=== PATIENT | male | born 1965 | race Caucasian/White ===

== ENCOUNTER → 2024-02-03 09:45 | Outpatient (CLI) | payer OTHER, SELFPAY ==
[2024-02-03 19:24] LABS: Add Manual Diff / Slide Review NO; Basophils Absolute Auto 0 /uL (0-100); Basophils Percent Auto 0.7 % (0-2); Eosinophils Absolute Auto 200 /uL (0-450); Eosinophils Percent Auto 3.5 % (2-4); Hematocrit 40.7 % (41-53); Lymphocytes Absolute Auto 1300 /uL (1100-4500); Mean Corpuscular HGB Conc 34.5 % (30-36); Mean Corpuscular Hemoglobin 32.6 PG (26-34); Mean Corpuscular Volume 94.5 fL (80-100); Monocytes Absolute Auto 400 /uL (0-900); Monocytes Percent Auto 6.7 % (3-14); Neutrophils Absolute Auto 4000 /uL (1500-7000); Neutrophils Percent Auto 67.1 % (50-75); Platelet Count 222 X10^3/uL (150-400); Red Blood Cell Count 4.31 X10^6/uL (4.5-5.9); White Blood Cell Count 5.9 X10^3/uL (4.5-11.0)
[2024-02-03 19:31] LABS: Alanine Aminotransferase 27 IU/L (<50); Albumin 4.3 g/dL (3.5-5.0); Albumin Globulin Ratio 1.6 (1.0-2.8); Alkaline Phosphatase 61 U/L (38-126); Aspartate Aminotransferase 27 IU/L (17-59); BUN Creatinine Ratio 21.4 (6-22); Bilirubin Total 0.6 mg/dL (0.2-1.3); Blood Urea Nitrogen 18 mg/dL (9-20); Calcium 9.1 mg/dL (8.4-10.2); Carbon Dioxide 31 mmol/L (22-32); Chloride 107 mmol/L (98-107); Cholesterol 229 mg/dL (140-199); Estimated Glomerular Filt Rate > 60 mL/min (>60); Globulin 2.7 g/dL (1.7-4.1); Glucose 108 mg/dL (70-100); HEMOLYSIS < 15 (0-50); Sodium 140 mmol/L (137-145); Triglycerides 45 mg/dL (35-150)
[2024-02-03 19:43] LABS: HDL Cholesterol 120 mg/dL (40-60); LDL Cholesterol Calculated 100 mg/dL (<100)
[2024-02-03 19:59] LABS: TSH w/ Reflex to FT4 0.95 uIU/mL (0.47-4.68)
[2024-02-03 20:00] LABS: Prostate Specific Antigen Scrn 1.73 ng/mL (0.1-4.0)
== END ==
PROVIDERS: PCP Family Medicine; Visit Provider Family Medicine
DX: Z12.5 Encounter for screening for malignant neoplasm of prostate (principal); I10 Essential (primary) hypertension; K40.90 Unilateral inguinal hernia, without obstruction or gangrene, not specified as recurrent
CPT/HCPCS: 80053; 80061; 84443; 85025; G0103

== ENCOUNTER → 2024-02-18 12:14 | Outpatient (CLI) | payer OTHER, SELFPAY ==
--- NOTE | 2024-02-18 | DI.US.S_ITS ---
PROCEDURE: US ABDOMEN LIMITED INDICATIONS: Unilateral inguinal hernia, without obstruction or TECHNIQUE: Real-time scanning was performed of the left groin, with image documentation. COMPARISON: None. FINDINGS: Targeted ultrasound of the left inguinal canal. There is a left inguinal hernia containing fat. The hernia neck measures approximately 0.9 cm. The hernia is reducible. IMPRESSION: Fat containing left inguinal hernia. Dictated by: Maurizio Toure M.D. on 02/18/2024 at 17:55 Approved by: Maurizio Toure M.D. on 02/18/2024 at 17:56
== END ==
PROVIDERS: PCP Family Medicine; Referring Provider Family Medicine; Visit Provider Family Medicine
DX: K40.90 Unilateral inguinal hernia, without obstruction or gangrene, not specified as recurrent (principal); I10 Essential (primary) hypertension
CPT/HCPCS: 76705

== ENCOUNTER 2024-06-10 06:57 | Day surgery (SDC) | payer OTHER, SELFPAY ==
[2024-06-04 15:19] VITALS: BMI 32.8
--- NOTE | 2024-06-09 07:45 | P.HP_ITS ---
History of Present Illness History of Present Illness Date Patient Seen: 06/10/24 Time Patient Seen: 08:37 Chief complaint: Left Laparoscopic Inguinal Hernia Repair Narrative: 59M with symptomatic left inguinal hernia here for elective lap repair. Worsening left groin pain and radiation into scrotum. No other interval changes in health. [facility] Medical History Vision disorder Hearing decreased Foot pain (~2002) MRSA (methicillin resistant Staphylococcus aureus) (~2014) Eczema BMI 32.0-32.9,adult Alcohol use Left groin hernia History of compression fracture of spine FHx: coronary artery disease History of diverticulitis HTN (hypertension) Family History Father History of heart disease Social History marital status: unmarried,single household members: significant other lives independently: Yes occupational status: employed Smoking Status: Never smoker alcohol intake: current additional social history: no tob 3 drinks/day edible sometimes FHX: dad - of [place], bypass @ 50 yo --- at 76 yo. 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 01/03/24 06/10/24 Rx take every day even if normal. #30 tabs Allergies Allergy/AdvReac Type Severity Reaction Status Date / Time codeine AdvReac Severe Nausea/vomi Verified 06/10/24 07:44 ting Exam Narrative Exam Narrative: Gen-Adult man alert and oriented Abdomen -Left inguinal hernia site marked with initials. Assessment & Plan Assessment and plan (1) Left groin hernia: Status: Acute Assessment & Plan narrative: 59M with symptomatic left inguinal hernia here for elective lap repair. Overview of the operation and its benefits alternatives and risks hemorrhage, infection, chronic pain, reoccurence reviewed. He provides his consent to proceed. Time-Based Coding :: [TOTAL MINUTES] spent with patient and on the chart (including review of chart, obtaining history, exam, reviewing outside data, placing orders, documenting exam and treatment plan, and counseling patient) on [DATE].
[2024-06-10 07:45] VITALS: BMI 31.6
[2024-06-10 07:49] VITALS: BP 172/101; PULSE 68; RESP 16; TEMP 36.2; O2SAT 97
[2024-06-10] MEDS: LACTATED RINGERS 1,000 ML 21 ML IV (07:54)
--- NOTE | 2024-06-10 08:07 | SUR.OPER ---
Supine on padded OR bed, head on pillow, arms padded and tucked at sides, legs uncrossed, safety belt at thigh, tape over blanket over lower legs .
[2024-06-10] MEDS: CEFAZOLIN 2 GM/100 ML PREMIX 100 ML IV (08:51)
[2024-06-10] MEDS: BUPIVACAINE 0.25% (PF) VIAL 30 ML INJ (09:07)
--- NOTE | 2024-06-10 09:50 | PM.OP.1 ---
Operative Date/Time/Diagnoses Date of procedure: 06/10/24 Time of procedure: 09:50 Pre-op diagnosis: Left inguinal hernia Post-op diagnosis: same Procedure & Clinicians Procedure: Laparoscopic repair of left inguinal hernia Same procedure as scheduled: Yes Indications: Symptomatic reducible left inguinal hernia Surgeon: Eliezer Castillo Barrel Raiser Helper: Adama Cadet Anesthesia Type: General Operative Notes Findings: Large indirect hernia Estimated Blood Loss (mL): 10 Procedure in detail: The patient was brought to the operating room and placed supine on the table. Bilateral sequential compression devices were applied. General anesthesia was induced and they were intubated with an endotracheal tube. A hernandes cath was placed in sterile fashion. They received 900g clindaymycin prior to skin incision. They were prepped and draped in sterile fashion. A time out was performed to ensure the correct patient, procedure and necessary equipment within the operating room. The skin was infiltrated with 0.25% bupivicaine. A 1 cm supra umbilical midline incision was made. The fascia was sharply incised and the abdomen entered traumatically. A 10mm balloon port was placed and pneumoperitoneum was established at 15mm Hg. Inspection of the abdomen demonstrated no evidence of injury upon entry. Two 5 mm ports were then placed under direct visualization in the right and left lower quadrant lateral to the rectus muscle. A left indirect hernia was observed. There were adhesions between the sigmoid colon and the left pelvic side wall which were carefully dissected. Starting on the left side the peritoneum 4 cm superior to the deep inguinal ring between the medial umbilical ligament and the anterior superior iliac spine was incised. The medial preperitoneal dissection was carried out into the space of Retzius bluntly, the bladder was swept inferiorly, the pubis and Kali's ligament were identified. Next attention was turned towards the lateral aspect of the peritoneal flap. The preperitoneal fat with the testicular vessels was carefully dissected off the inferior peritoneal flap. The cord was carefully inspected there was a large indirect hernia and associated cord lipoma which was skeltonized off the cord preserving the testicular vessels and the vas deferns. There was no direct hernia. A large Bard 3D Max mesh was then placed into the abdomen and positioned such that the myopectineal orifice was completely covered with good overlap on all sides. The peritoneal flap was then repositioned back to its original position and a running V lock suture was used to close the peritoneum such that no bowel could herniate into the preperitoneal space. The area was examined for hemostasis. The 5mm trocars were removed under direct visualization and pneumoperitoneum was deflated through the umbilical trocar, The fascia at the umbilicus was closed with 0-Vicryl in figure of 8 fashion, skin closed with 4-0 Monocyl followed by Dermabond. The sponge and instrument count at the end of the case was correct. Both testicles were entirely within the scrotum at the end of the case. The patient emerged from anesthsia was extubated and transferred to recovery in stable condition. Complications: none Post-operative Condition: stable Disposition: same day surgery
[2024-06-10 10:01] VITALS: BP 166/99; PULSE 73; RESP 12; TEMP 37.1; O2SAT 99
[2024-06-10 10:06] VITALS: BP 170/99; PULSE 73; RESP 16; TEMP 37; O2SAT 99
[2024-06-10 10:11] VITALS: BP 172/101; PULSE 64; RESP 14; TEMP 37; O2SAT 98
[2024-06-10 10:15] VITALS: BP 175/102; PULSE 60; RESP 13; TEMP 37; O2SAT 100
[2024-06-10] MEDS: OXYCODONE IR 5 MG TABLET PO ×2 (10:20→10:43)
[2024-06-10] MEDS: ACETAMINOPHEN 325 MG TABLET 975 MG PO (10:21)
[2024-06-10 10:46] VITALS: BP 172/99; PULSE 50; RESP 12; TEMP 36.4; O2SAT 99
--- NOTE | 2024-06-10 12:54 | SUR.PHASEII ---
1100 Pt dressed and ready for DC. Waiting for ride.
== END 2024-06-10 11:20 | disposition home or self-care (01) ==
PROVIDERS: PCP Family Medicine; Referring Provider Surgery; Visit Provider Surgery
PROC: 0YQ64ZZ Repair Left Inguinal Region, Percutaneous Endoscopic Approach (ICD-10-PCS; CPT 49650; principal; 2024-06-10 08:45)
DX: K40.90 Unilateral inguinal hernia, without obstruction or gangrene, not specified as recurrent (principal); D17.6 Benign lipomatous neoplasm of spermatic cord
CPT/HCPCS: 49650; 82962; J0690; J1100; J2250; J2405; J2704; J3010

== ENCOUNTER → 2024-09-21 08:46 | Outpatient (CLI) | payer OTHER, SELFPAY ==
--- NOTE | 2024-09-21 08:48 | DI.US.S_ITS ---
PROCEDURE: US SCROTUM INDICATIONS: testical pain TECHNIQUE: Real-time scanning was performed of the scrotum and testicles, with image documentation. Color and pulse Doppler interrogation was performed of both testicles. COMPARISON: None. FINDINGS: Right: Testicle is normal in size at 4.8 x 3.6 x 2.5 cm, and homogenous in echotexture. Epididymis is normal in overall size and morphology. No hydrocele or varicoceles. Overlying scrotal skin is normal in thickness. Left: Testicle is normal in size at 4.9 x 3.7 x 2.5 cm, and homogeneous in echotexture. Epididymis is normal in overall size and morphology. Trace hydrocele. No varicocele. Overlying scrotal skin is normal in thickness. Doppler: Color and pulse Doppler demonstrate normal and symmetric arterial flow in both testicles. Fat containing right inguinal hernia is seen. Abdominal wall defect measures up to 0.8 cm in diameter. Status post left inguinal hernia repair. No recurrent hernia is seen. IMPRESSION: 1. No sonographic signs of testicular torsion or epididymitis. 2. Small fat containing right inguinal hernia. 3. Status post left inguinal hernia repair without a recurrent left inguinal hernia. Approved by: José Sorto M.D. on 09/21/2024 at 13:52
== END ==
PROVIDERS: PCP Family Medicine; Referring Provider Surgery; Visit Provider Surgery
DX: N50.812 Left testicular pain (principal); K40.90 Unilateral inguinal hernia, without obstruction or gangrene, not specified as recurrent
CPT/HCPCS: 76870

== ENCOUNTER 2024-09-22 08:19 | Day surgery (SDC) | payer OTHER, SELFPAY ==
--- NOTE | 2024-09-22 | PATH_ITS ---
[facility] Accession Number: [id number] No. of containers..02 Tissue . 01 Material submitted: . PART A: colon - DESCENDING COLON POLYP PART B: cecum - CECAL POLYP . 01 Diagnosis: Part A: DESCENDING COLON POLYP : Tubulovillous adenoma. No high-grade dysplasia or malignancy identified. . Part B: CECAL POLYP: Tubular adenoma. [facility] 09/24/2024 1255 Local . 01 Electronically signed: . Mark Sampson MD, Pathologist NPI- [id number] . 01 Gross description: . A. Received in formalin with two patient identifiers and descending colon polyp, is a single arriola and brown soft tissue fragment measuring 1.8 x 0.9 x 0.9 cm. Inked blue, serially sectioned, and submitted in cassette A1. . B. Received in formalin with two patient identifiers and cecal polyp, is a single arriola soft tissue fragment 0.5 cm in greatest dimension. Submited in cassette B1. ([id number]) /[facility] 09/24/2024 1255 Local . 01 Pathologist provided ICD-10: D12.0, D12.4 . 01 CPT . 635348, 325519 Specimen Comment: A courtesy copy of this report has been sent to [phone] Performed at: [address] [facility] [address], [place], [place] [id number] MD Mark Sampson MD Phone: [phone]
[2024-09-22 09:00] VITALS: BP 104/91; PULSE 84; RESP 16; TEMP 36.3
--- NOTE | 2024-09-22 09:44 | P.HP_ITS ---
History of Present Illness History of Present Illness Date Patient Seen: 09/22/24 Time Patient Seen: 09:44 Chief complaint: Colonoscopy Narrative: 59-year-old male here for screening colonoscopy. Had a colonoscopy in mid 30s for diverticular related disease. No abdominal concerns today. No family history of colon cancer. [facility] Medical History Vision disorder Hearing decreased Foot pain (~2002) MRSA (methicillin resistant Staphylococcus aureus) (~2014) Eczema BMI 32.0-32.9,adult Alcohol use Left groin hernia History of compression fracture of spine FHx: coronary artery disease History of diverticulitis HTN (hypertension) Surgical History Hx of hernia repair Family History Father History of heart disease Social History marital status: unmarried,single household members: significant other lives independently: Yes occupational status: employed Smoking Status: Never smoker alcohol intake: current additional social history: no tob 3 drinks/day edible sometimes FHX: dad - of [place], bypass @ 50 yo --- at 76 yo. 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 09/03/24 09/22/24 Rx take every day even if normal. #90 tabs Allergies Allergy/AdvReac Type Severity Reaction Status Date / Time codeine AdvReac Severe Nausea/vomi Verified 09/22/24 08:59 ting Exam Vital Signs (past 8 hours): - 09/22/24 09:00 Temperature 97.4 F L Pulse Rate 84 Respiratory Rate 16 Blood Pressure 104/91 H Oxygen Delivery Method Room Air Oxygen Delivery Method Room Air Narrative Exam Narrative: General adult man alert oriented no acute distress Chest nonlabored respiration Extremities warm well perfused Assessment & Plan Assessment & Plan narrative: The patient requires colorectal screening and colonoscopy is recommended. Technical details were discussed. Risks, benefits, alternatives explained. Risks including but not limited to myocardial infarction, aspiration, bleeding, pain, missed lesion, incomplete examination, need for further radiographic studies, intestinal injury, and need for major abdominal surgery were discussed. All questions were answered to their satisfaction, and they are in agreement with this plan. Time-Based Coding :: [TOTAL MINUTES] spent with patient and on the chart (including review of chart, obtaining history, exam, reviewing outside data, placing orders, documenting exam and treatment plan, and counseling patient) on [DATE].
[2024-09-22 10:13] VITALS: BP 105/77; PULSE 89; RESP 12; TEMP 37.2; O2SAT 95
--- NOTE | 2024-09-22 10:16 | P.OP.COLON_ITS ---
Operative Date/Time/Diagnoses Date of procedure: 09/22/24 Time of procedure: 10:16 Pre-op diagnosis: Colorectal screening Post-op diagnosis: other (Colonic polyp x2) Procedure & Clinicians Study performed: Colonoscopy and polypectomy Same procedure as scheduled: Yes Indications: Screening Surgeon: Eliezer Castillo Procedure Notes Procedure in detail: The history and physical was performed/updated and the patient is ASA class is 2. The procedure was discussed in detail with the patient. Potential risks complications including infection, bleeding, missed diagnosis, perforation, need for surgery, and were explained. Their questions were answered and informed consent was obtained. Patient was brought to the procedure room and placed standard monitoring equipment. The patient's vital signs were monitored continuously throughout the entire procedure. Prior to starting time-out was performed. The patient was placed in the left lateral recumbent position. Procedural sedation was administered by anesthesia. Examination began with a thorough inspection of the perianal area there was no evidence of fissures, fistulae, external hemorrhoids or cutaneous malignancy. The colonoscopy scope was then placed into the anal canal and was advanced to the cecum, which was identified by the ileocecal valve, the appendiceal orifice and the confluence of the taenia. The scope was then slowly withdrawn examining colon thoroughly in all directions, irrigating it of any residual stool. The scope was retroflexed within the rectum The patient tolerated the procedure well. They will be discharged once criteria are met. The prep was of good/excellent quality. The withdrawl time was10 minutes. FINDINGS * 1 cm pedunculated polyp of descending colon at 60 cm from the verge. Removed with cold snare. Tattoo placed at the base of the lesion. * Mild diverticulosis of distal colon. * Cecum 3 mm polyp removed with Jumbo forceps. Specimen(s): other (Cecal polyp, descending colon polyp) Impression: Colonic polyp x2 Post-procedure Recommendations: High fiber diet Plan for aftercare: Follow up is dependent on pathology findings Disposition: same day surgery
[2024-09-22 10:17] VITALS: BP 119/74; PULSE 95; RESP 16; TEMP 37.1; O2SAT 97
[2024-09-22 10:25] VITALS: BP 118/75; PULSE 76; RESP 17; O2SAT 99
== END 2024-09-22 10:38 | disposition home or self-care (01) ==
PROVIDERS: PCP Family Medicine; Referring Provider Surgery; Visit Provider Surgery
PROC: 0DJD8ZZ Inspection of Lower Intestinal Tract, Via Natural or Artificial Opening Endoscopic (ICD-10-PCS; CPT 45378; principal; 2024-09-22 09:45)
DX: Z12.11 Encounter for screening for malignant neoplasm of colon (principal); K57.30 Diverticulosis of large intestine without perforation or abscess without bleeding; D12.4 Benign neoplasm of descending colon; D12.0 Benign neoplasm of cecum
CPT/HCPCS: 45385; 45380; 45381; J2704

== ENCOUNTER → 2024-10-17 08:13 | Outpatient (CLI) | payer OTHER, SELFPAY ==
--- NOTE | 2024-10-17 08:15 | DI.CT.S_ITS ---
PROCEDURE: CT ABDOMEN PELVIS W CON INDICATIONS: LLQ pain, h/o diverticulitis, recent hernia surgery TECHNIQUE: After the administration of intravenous contrast, axial sections acquired from the lung bases to the pubic symphysis. Coronal and sagittal reformats were performed. For radiation dose reduction, the following was used: automated exposure control, adjustment of mA and/or kV according to patient size. COMPARISON: None. FINDINGS: Image quality: Diagnostic. Peritoneum: No pneumoperitoneum or ascites. Bones: No acute osseous abnormality. Mild focal kyphosis of the thoracolumbar junction secondary to a chronic T12 compression fracture (478) with up to 30% height loss. Lower Chest: No acute abnormality. Liver: Normal in size and contour. Gallbladder: No stones or pericholecystic fluid. Biliary tree: No intrahepatic or extrahepatic biliary ductal dilatation. Pancreas: Within normal limits. Spleen: Normal in size and contour. Kidneys: No hydronephrosis or obstructive urolithiasis. Adrenals: No adrenal nodularity. Bladder: Normal in size and wall thickness. : No acute abnormality. Stomach: Normal in size and contour. Bowel: Normal in diameter without any bowel obstruction. Appendix within normal limits (2/97). Scattered colonic diverticulosis. Oral contrast opacifying stomach and small bowel. Lymph Nodes: No retroperitoneal, mesenteric, or inguinal lymphadenopathy. Vascular: No abdominal aortic aneurysm. The visualized arterial vasculature is patent. Soft Tissues: Status post left inguinal hernia repair. No recurrent inguinal hernia. Likely 4.2 cm lipoma in the right abductor musculature (2/174). IMPRESSION: 1. No CT evidence of acute diverticulitis or recurrent inguinal hernia. 2. Chronic T12 compression fracture. 3. No other acute CT abnormality of the abdomen/pelvis. Dictated by: Ministerio Ferrer M.D. on 10/18/2024 at 21:30 Approved by: Ministerio Ferrer M.D. on 10/18/2024 at 21:35
[2024-10-17 08:38] LABS: Estimated Glomerular Filt Rate > 60 mL/min (>60)
== END ==
LOC: CT 08:14
PROVIDERS: PCP Family Medicine; Referring Provider Family Medicine; Visit Provider Family Medicine
DX: N50.812 Left testicular pain (principal); K57.90 Diverticulosis of intestine, part unspecified, without perforation or abscess without bleeding; M48.54XA Collapsed vertebra, not elsewhere classified, thoracic region, initial encounter for fracture; R10.32 Left lower quadrant pain; K40.90 Unilateral inguinal hernia, without obstruction or gangrene, not specified as recurrent; Z87.19 Personal history of other diseases of the digestive system
CPT/HCPCS: 36415; 74177; 82565; Q9967

== ENCOUNTER → 2025-02-01 09:10 | Outpatient (CLI) | payer OTHER, SELFPAY ==
[2025-02-01 18:37] LABS: Add Manual Diff / Slide Review NO; Basophils Absolute Auto 100 /uL (0-100); Basophils Percent Auto 1.1 % (0-2); Eosinophils Absolute Auto 200 /uL (0-450); Eosinophils Percent Auto 2.7 % (2-4); Hematocrit 40.4 % (41-53); Hemoglobin 13.7 g/dL (13.5-17.5); Lymphocytes Absolute Auto 1500 /uL (1100-4500); Lymphocytes Percent Auto 22.3 % (25-40); Mean Corpuscular Hemoglobin 32.3 PG (26-34); Mean Corpuscular Volume 95.1 fL (80-100); Monocytes Absolute Auto 500 /uL (0-900); Monocytes Percent Auto 6.9 % (3-14); Neutrophils Absolute Auto 4400 /uL (1500-7000); Platelet Count 240 X10^3/uL (150-400); Red Blood Cell Count 4.25 X10^6/uL (4.5-5.9); White Blood Cell Count 6.5 X10^3/uL (4.5-11.0)
[2025-02-01 18:52] LABS: Alanine Aminotransferase 25 IU/L (<50); Albumin 4.5 g/dL (3.5-5.0); Albumin Globulin Ratio 1.4 (1.0-2.8); Alkaline Phosphatase 61 U/L (38-126); Aspartate Aminotransferase 57 IU/L (17-59); BUN Creatinine Ratio 16.7 (6-22); Bilirubin Total 0.6 mg/dL (0.2-1.3); Blood Urea Nitrogen 18 mg/dL (9-20); Calcium 9.3 mg/dL (8.4-10.2); Carbon Dioxide 28 mmol/L (22-32); Chloride 104 mmol/L (98-107); Cholesterol 273 mg/dL (140-199); Estimated Glomerular Filt Rate > 60 mL/min (>60); Globulin 3.2 g/dL (1.7-4.1); Glucose 97 mg/dL (80-110); Potassium 4.7 mmol/L (3.4-5.1); Sodium 139 mmol/L (137-145); Total Protein 7.7 g/dL (6.3-8.2); Triglycerides 53 mg/dL (35-150)
[2025-02-01 18:59] LABS: HEMOLYSIS 16 (0-50)
[2025-02-01 19:06] LABS: HDL Cholesterol 133 mg/dL (40-60); LDL Cholesterol Calculated 129 mg/dL (<100)
[2025-02-01 19:21] LABS: Thyroid Stimulating Hormone 1.05 uIU/mL (0.47-4.68)
[2025-02-01 19:40] LABS: Hemoglobin A1C% w Est Avg Glu 4.9 % (4.0-6.0)
== END ==
PROVIDERS: PCP Family Medicine; Visit Provider Family Medicine
DX: Z78.9 Other specified health status (principal); R73.9 Hyperglycemia, unspecified; Z82.49 Family history of ischemic heart disease and other diseases of the circulatory system; I10 Essential (primary) hypertension
CPT/HCPCS: 80053; 80061; 83036; 84443; 85025

== ENCOUNTER → 2025-09-07 10:38 | Outpatient (CLI) | payer OTHER, SELFPAY ==
[2025-09-07 19:26] LABS: Cholesterol 234 mg/dL (140-199); Triglycerides 70 mg/dL (35-150); Uric Acid 5.7 mg/dL (3.5-8.5)
[2025-09-07 20:04] LABS: HDL Cholesterol 120 mg/dL (40-60)
== END ==
PROVIDERS: PCP Family Medicine; Visit Provider Family Medicine
DX: I10 Essential (primary) hypertension (principal); E78.2 Mixed hyperlipidemia; Z82.49 Family history of ischemic heart disease and other diseases of the circulatory system; Z12.5 Encounter for screening for malignant neoplasm of prostate
CPT/HCPCS: 80061; 84550; 86038; 86200; 86430; G0103